=== PATIENT | male | born 1970 | race African-American/Black ===

== ENCOUNTER 2022-10-19 11:50 | Emergency (ER) | payer MEDICAID ==
[~2022-10-19] VITALS: Ht 175.3 cm; Wt 89.8 kg
[2022-10-19 11:52] VITALS: BP 144/83
--- NOTE | 2022-10-19 11:58 | NUR ---
ANISA ALS TO ER BED
[2022-10-19] MEDS ORDERED: ONDANSETRON 4 MG ODT PO ONE (14:00)
[2022-10-19] MEDS ORDERED: AMLO2.5T PO ×2 (14:09→14:14)
[2022-10-19] MEDS ORDERED: ONDA-188 PO ×2 (14:09→14:14)
[2022-10-19] MEDS ORDERED: DICL20GE TP ×2 (14:09→14:14)
[2022-10-19] MEDS ORDERED: NAPR-54 PO ×2 (14:09→14:14)
--- NOTE | 2022-10-19 14:25 | NUR ---
Patient discharged with v/s stable. Written and verbal after care instructions FOR SHOULDER PAIN, MEDICINE REFILL , GASTRITIS AND TINNITUS given and explained. Patient alert, oriented and verbalized understanding of instructions. Ambulatory with steady gait. All questions addressed prior to discharge. ID band removed. Patient advised to follow up with PMD. Rx of NORVASC, NAPROXEN, ZOFRAN ODT, VOLTAREN given. Opportunity to ask questions provided and answered.
== END 2022-10-19 14:25 | disposition home or self-care (01) ==
LOC: MED 11:50
DX: I10 Essential (primary) hypertension (principal); K29.70 Gastritis, unspecified, without bleeding; M25.512 Pain in left shoulder; M25.511 Pain in right shoulder; F32.9 Major depressive disorder, single episode, unspecified; K21.9 Gastro-esophageal reflux disease without esophagitis; Z76.0 Encounter for issue of repeat prescription
CPT/HCPCS: 99283; Q0162